=== PATIENT | male | born 1985 | race Caucasian/White ===

== ENCOUNTER 2022-12-10 15:53 | Emergency (ER) | payer SELFPAY ==
--- NOTE | 2022-12-10 15:57 | ED.EAR ---
HPI - Ear Problem General Chief complaint: Ear Stated complaint: Ear pain Time Seen by Provider: 12/10/22 15:57 Source: patient Mode of arrival: ambulatory Limitations: no limitations History of Present Illness HPI Narrative: Patient is a 37-year-old male who presents with right ear pain and swelling for 1 week. Patient states he wears over the ear headphones daily and it does pull ear when taking off. Denies any other obvious trauma to the ear. Patient only reports pain when bending ear forward. Denies any drainage from ear. And has not taken anything for symptoms. Denies any changes in hearing. Complaint: ear pain Related Data Home Medications Medication Instructions Recorded Confirmed No Home Medications 12/10/22 12/10/22 Allergies Allergy/AdvReac Type Severity Reaction Status Date / Time No Known Allergies Allergy Unverified 12/10/22 15:56 Review of Systems Review of Systems: All systems reviewed & are unremarkable except as noted in HPI and below Constitutional: Constitutional: Denies body ache(s), Denies chills, Denies fever(s), Denies headache(s) and Denies malaise Eyes: Eyes: Denies blurry vision, Denies eye discharge and Denies irritation ENT: Reports otalgia, Denies headache(s), Denies nasal congestion, Denies nasal discharge and Denies sore throat Cardiovascular: Cardiovascular: Denies chest pain, Denies edema, Denies palpitations and Denies dyspnea on exertion Respiratory: Respiratory: Denies cough and Denies dyspnea on exertion Gastrointestinal: Gastrointestinal: Denies abdominal pain, Denies diarrhea, Denies nausea and Denies vomiting Musculoskeletal: Musculoskeletal: Denies back pain, Denies arthralgias and Denies muscle weakness Integumentary/Breasts: Skin/Breast: Denies pruritus and Denies rash Neurologic: Denies headache(s) Psychiatric: Psychiatric: Reports no additional psychiatric complaints Endocrine: Endocrine: Denies palpitations PMFSH Family History Family History Father Hypertension Social History Social History Smoking status: Smoker, status unknown Alcohol intake: never Comments At time of signature, agree with nursing past medical, surgical, social and family history. There is no relevant family history pertinent to the presenting complaint? Exam Const: General: cooperative, healthy appearing, no acute distress and well nourished Nutritional Appearance: well nourished Orientation/consciousness: patient oriented x3 Limitations: no limitations HENMT: Head: normal to inspection, normocephalic and atraumatic Ears: hearing grossly normal bilaterally, TM's normal bilaterally, EAC's normal, mastoids normal, no periauricular adenopathy, external ear abnormal auricular hematoma on the right, auricular tenderness on the right and localized and pain with movement of external ear on the right and no periauricular adenopathy Outer ear/TM images: 1. Area of fluctuation and ecchymosis. Tenderness on palpation. No surrounding erythema or induration Face/Nose/Sinus: Normal external nose present, Normal nares present, Normal nasal mucous membranes and turbinates present, No nasal discharge present, normal facial exam and sinuses nontender Face and sinus: normal facial exam and sinuses nontender Mouth: Yes Normal oral and palatal mucosa present, Yes lip normal, Yes tongue normal and Yes moist mucous membranes Throat: posterior oropharynx normal, tonsils normal and uvula midline Eyes: General: appearance normal, both eyes and all related structures Alignment and Position: alignment normal and position normal Eyelids: eyelids normal Pupils: Equal, round and reactive pupils present EOM: EOMs intact bilaterally Neck: Neck: normal visual inspection, full ROM, no lymphadenopathy and supple Chest: Chest palpation & inspection: normal inspection of the chest Resp
[2022-12-10 16:01] VITALS: BP 119/77; PULSE 70; RESP 16; TEMP 36.2; O2SAT 99
== END 2022-12-10 16:21 | disposition home or self-care (01) ==
PROVIDERS: Emergency Provider Nurse Practitioner Family
DX: S00.431A Contusion of right ear, initial encounter (principal); X58.XXXA Exposure to other specified factors, initial encounter
CPT/HCPCS: 99211; G0463

== ENCOUNTER 2023-06-25 15:50 | Emergency (ER) | payer SELFPAY ==
[2023-06-25 16:06] VITALS: BP 118/100; PULSE 104; RESP 16; TEMP 36.8; O2SAT 100
--- NOTE | 2023-06-25 16:06 | ED.URI ---
HPI - URI/Sore Throat General Chief Complaint: Upper Respiratory Infection Stated Complaint: Neck Swelling Time Seen by Provider: 06/25/23 16:16 Source: patient and RN notes reviewed Mode of arrival: ambulatory Limitations: no limitations History of Present Illness HPI Narrative: 37-year-old male with history of heavy smoking presents with concern for feeling of swollen throat. He reports for the past week he feels like his throat is swollen when he swallows. He reports it is not painful. He reports food is not getting stuck when he swallows. He reports typical smoker's cough but feels like he has chest congestion. He denies sick symptoms, denies rhinorrhea, nasal congestion, sore throat. Denies swollen lips, swollen tongue, trouble swallowing or trouble breathing MD elicited complaint: cough Related Data Allergies Allergy/AdvReac Type Severity Reaction Status Date / Time No Known Allergies Allergy Unverified 06/25/23 16:04 Review of Systems Review of Systems: CONSTITUTIONAL: Denies malaise, chills, sweats, or fever. EYES: Denies visual changes, redness, or discharge. ENT: Denies rhinorrhea, congestion, sinus pain, otalgia and sore throat. Reports feeling of swollen throat CARDIOVASCULAR: Denies chest pain, palpitations, or edema. RESPIRATORY: Reports cough. Denies dyspnea. GASTROINTESTINAL: Denies abdominal pain, nausea, vomiting, diarrhea SKIN: Denies rash or itching. MUSCULOSKELETAL: Denies myalgia. NEUROLOGIC: Denies headache. All systems reviewed & are unremarkable except as noted in HPI and below PMFSH Family History Family History Father Hypertension Social History Social History Smoking status: Smoker, status unknown Alcohol intake: never Comments At time of signature, agree with nursing past medical, surgical, social and family history. There is no relevant family history pertinent to the presenting complaint Exam Narrative: GENERAL: Well-appearing, well-nourished, and in no acute distress. HEAD: Normocephalic EYES: PERRLA, conjunctivae clear ENT: Nares clear. Mucous membranes moist. TM pearly dickinson with sharp light reflex bilaterally; no tragal tenderness. Oropharynx not erythematous without lesions. Tonsils not enlarged and without exudate, no drooling, no hoarseness, no trismus, uvula midline. NECK: Supple. No lymphadenopathy. Possible thyromegaly CHEST: Scattered wheeze, otherwise Clear to auscultation, breath sounds equal. No rhonchi, rales, or stridor. No respiratory distress, speaks in full sentences. HEART: Regular rate and rhythm. No murmur heard. SKIN: Warm, dry, no rash. NEURO: Alert and oriented x3. PSYCH: Normal mood and affect Course Course Emergency Course: Patient is aware of diagnosis, understands and agrees to treatment plan. Anticipatory guidance given. Patient agrees to follow-up as directed and is aware of reasons to seek care at the emergency department. Portions of this record may have been created with voice recognition software Level of Care: Express Care Visit Vital Signs Vital signs: Reviewed. MDM - URI/Sore Throat MDM Narrative Medical decision making narrative: Differential diagnosis considered: Cha virus, strep pharyngitis, allergic rhinitis, upper respiratory tract infection, sinusitis, rhinosinusitis, nasopharyngitis. viral pharyngitis, otitis media, otitis externa, pneumonia, bronchitis, viral cough syndrome, viral syndrome, and influenza. Exam findings show no acute concerns or changes; patient is non-toxic appearing and is in no distress. Patient is appropriate for outpatient treatment and follow-up. Lab Data Attestation: I reviewed the patient's lab results. Critical Care Time Critical Care Time Critical Care Time: No Discharge Plan Discharge Clinical Impression: Wheezing Patient Disposition: Home, Self-Care Conditio
== END 2023-06-25 16:28 | disposition home or self-care (01) ==
PROVIDERS: Emergency Provider Nurse Practitioner
DX: R06.2 Wheezing (principal)
CPT/HCPCS: 99213; G0463

== ENCOUNTER 2023-10-20 14:49 | Outpatient (CLI) | payer BC, SELFPAY ==
--- NOTE | ~2023-10-20 | US_ITS ---
Abdominal Sonogram: Real-time sonographic imaging of the abdomen was performed. Clinical History: Abdominal pain Findings: The liver appears normal with no evidence of mass lesion or bile duct dilatation. Main por dimitri vein demonstrates normal direction of flow. The spleen is normal in size without evidence of foca l lesion. The gallbladder is well distended, and appears normal with no evidence of gallstone or wal l thickening. The common bile duct measures 3 mm. The visualized pancreas, aorta, and IVC are unrema rkable. The right kidney measures 9.2 cm in length and the left kidney measures 10.1 cm. There is n o hydronephrosis or renal calculus. Impression: Unremarkable abdominal ultrasound. Reviewed, dictated and finalized at location . Impression: Unremarkable abdominal ultrasound.
== END 2023-10-20 14:50 ==
PROVIDERS: PCP Emergency Medicine; Visit Provider Emergency Medicine
DX: R10.30 Lower abdominal pain, unspecified (principal)
CPT/HCPCS: 76700

== ENCOUNTER 2024-10-15 17:40 | Emergency (ER) | payer BC, SELFPAY ==
[2024-10-15 18:00] VITALS: BP 105/88; PULSE 84; RESP 16; TEMP 36.1; O2SAT 100
[2024-10-15 18:10] LABS: EDSTREPNEGPOS1 Negative (Negative)
--- NOTE | 2024-10-15 18:31 | ED.URI ---
HPI - URI/Sore Throat General Chief Complaint: Upper Respiratory Infection Stated Complaint: SORE THROAT Time Seen by Provider: 10/15/24 18:20 Source: patient and RN notes reviewed Mode of arrival: ambulatory Limitations: no limitations History of Present Illness HPI Narrative: Patient presents today complaining of a one-month history of throat irritation, worse over the last 2 days. Patient describes the discomfort as, ?annoying, uncomfortable, zero pain. Denies any additional URI symptoms to include cough, congestion, rhinorrhea, fever, shortness of breath, difficulty swallowing. He has history of GERD and symptoms similar to this episode, for which he was on omeprazole a few years ago. States at that time, symptoms resolved and he stop the medication. He has not tried any PPI or Pepcid for these current symptoms. Related Data Home Medications ?Medication ?Instructions ?Recorded ?Confirmed ?Last Taken ?Type vilazodone 20 mg tablet mg 10/15/24 Unknown History Allergies Allergy/AdvReac Type Severity Reaction Status Date / Time No Known Allergies Allergy Unverified 10/15/24 17:58 [facility] Past Medical History Medical History (Updated 10/15/24 @ 18:36 by Enriqueta Briseno, [facility], ) GERD (gastroesophageal reflux disease) Family History Family History Father Hypertension Social History Social History Smoking status: Smoker, status unknown Alcohol intake: never Comments At time of signature, I have reviewed and agree with nursing past medical, surgical, social and family history unless otherwise noted. Please see nursing chart for further information. There is no relevant family history pertinent to the presenting complaint Exam Narrative: GENERAL: Well-appearing, well-nourished, and in no acute distress. HEAD: Normocephalic, atraumatic. EYES: EOMI. No redness or drainage. Conjunctivae normal. ENT: Mucous membranes pink and moist. Nares clear. No rhinorrhea. TMs normal bilaterally. Throat normal with small white pustule in the left posterior pharynx. Uvula midline. NECK: Normal AROM. CHEST: No respiratory distress. Clear to auscultation. HEART: Regular rate and rhythm. No murmur appreciated. EXTREMITIES: Normal range of motion. No edema. SKIN: Warm, dry, no rash. Capillary refill normal. Normal skin turgor. NEURO: No focal deficits. Alert and oriented x3. Gait steady. PSYCH: Normal affect. No signs of depression or anxiety. Course Course Level of Care: Express Care Visit Vital Signs Vital signs: Vital Signs Temperature 97 F L 10/15/24 18:00 Pulse Rate 84 10/15/24 18:00 Respiratory Rate 16 10/15/24 18:00 Blood Pressure 105/88 10/15/24 18:00 Pulse Oximetry 100 10/15/24 18:00 Temperature 97 F L 10/15/24 18:00 Pulse Rate 84 10/15/24 18:00 Respiratory Rate 16 10/15/24 18:00 Blood Pressure 105/88 10/15/24 18:00 Pulse Oximetry 100 10/15/24 18:00 Reviewed MDM - URI/Sore Throat MDM Narrative Medical decision making narrative: Patient is 31-year-old male patient presents with a 1 month history of irritated throat without any additional symptoms. Rapid strep negative. Culture pending. History of GERD for which he took omeprazole for similar symptoms, which did help resolve his symptoms. He has not tried any [id number] treatment review prior to arrival. Vital signs stable. Recommend starting a PPI and making dietary modifications. Anticipatory guidance given. Differential Diagnosis Differential diagnosis: Likely upper respiratory infection, pharyngitis and other (Strep throat, GERD, esophagitis) Lab Data Attestation: I reviewed the patient's lab results. Labs: Lab Results 10/15/24 Range/Units 18:08 POC Grp A Strep Screen Negative (Negative) Critical Care Time Critical Care Time Critical Care Time: No Discharge Plan Discharge Clinical Impression: Throat irritation Patient Disposition: Home Condition: Stable Instructions: Diet for Stomach Ulcers and Gastritis (ED), GERD (Gastroesophageal Reflux Disease) (DC) Additional Instructions: Your rapid strep screen is negative today. Your symptoms may be due to acid reflux. Please start an [id number] medications such as omeprazole to help decrease acid. You may also want to make some dietary modifications such as decreasing citrus foods the, fried foods, spicy foods. Try to sit upright for 2-3 hours after your last meal before going to bed. Follow-up with your PCP next week if symptoms persist. Patient Language: Hebrew Prescriptions: No Action albuterol sulfate 90 mcg/actuation HFA aerosol inhaler 2 puff INHALATION QID PRN (Reason: shortness of breath or wheezing) Qty: 8.5 0RF vilazodone 20 mg tablet Follow-up/Referrals: Franklin Cummins MD [Primary Care Provider] - Time of Disposition: 18:36
== END 2024-10-15 18:39 | disposition home or self-care (01) ==
PROVIDERS: Emergency Provider Nurse Practitioner; PCP Emergency Medicine
DX: R07.0 Pain in throat (principal); K21.9 Gastro-esophageal reflux disease without esophagitis
CPT/HCPCS: 87081; 87880; 99212; G0463